=== PATIENT | female | born 1955 | race Asian ===

== ENCOUNTER 2017-04-17 03:43 | Inpatient (IN) | payer MEDICAID ==
[2017-04-17] VITALS (8 sets, daily range): BP systolic 122–164; BP diastolic 60–88; PULSE 64–88; RESP 15–18; TEMP 96.4–98; O2SAT 96–98
[~2017-04-17] VITALS: Ht 152.4 cm; Wt 66.7 kg
[~2017-04-17 03:43] MED LIST: AMLO5TAB4 PO; GLIP5TAB13 PO; GLU500 PO; LOSA25TA3 PO; OMEP40CA33 PO
[2017-04-17] MEDS ORDERED: NITROGLYCERIN 0.4 MG TAB.SUBL SL ONE (04:30)
[2017-04-17 04:41] LABS: BASOPHILS % (AUTO) 0.5 % (0.0-2.0); CALCIUM 9.3 mg/dL (8.4-11.0); CREATININE 0.79 mg/dL (0.55-1.30); EOSINOPHILS # (AUTO) 0.3 K/uL (0.0-0.4); EOSINOPHILS % (AUTO) 2.9 % (0.0-4.0); HEMATOCRIT 43.4 % (36-48); HEMOGLOBIN 14.7 g/dL (12.0-16.0); LYMPHOCYTES # (AUTO) 3.7 K/uL (1.0-5.5); LYMPHOCYTES % (AUTO) 41.8 % (20.5-51.5); MEAN CORPUSCULAR HEMOGLOBIN 29 pg (27-31); MEAN CORPUSCULAR HGB CONC 34 % (32-36); MEAN CORPUSCULAR VOLUME 87 fL (79.0-98.0); MONOCYTES # (AUTO) 0.8 K/uL (0.0-1.0); MONOCYTES % (AUTO) 8.9 % (1.7-9.3); NEUTROPHILS % (AUTO) 45.9 % (40.0-70.0); PLATELET COUNT (AUTO) 361 K/uL (130-430); POTASSIUM 3.4 mmol/L (3.5-5.1); RED BLOOD CELL COUNT(AUTO) 4.99 MIL/uL (4.2-6.2); WHITE BLOOD COUNT (AUTO) 8.8 K/uL (4.8-10.8)
[2017-04-17 04:46] LABS: ALBUMIN 4.3 g/dL (3.4-4.8); TOTAL BILIRUBIN 0.4 mg/dL (0.0-1.0); TOTAL PROTEIN, SERUM 8.1 g/dL (6.4-8.3)
[2017-04-17 04:50] LABS: INR 0.9 (0.8-1.2); PROTHROMBIN TIME 9.5 SECS (9.5-12.5)
[2017-04-17 05:00] LABS: BILIRUBIN,URINE NEGATIVE (NEGATIVE); BLOOD, URINE 2+ (NEGATIVE); CLARITY/URINE HAZY (CLEAR); COLOR,URINE YELLOW (YELLOW); GLUCOSE,URINE 1+ (NEGATIVE); KETONES,URINE TRACE (NEGATIVE); LEUKOCYTE ESTERASE ,URINE 3+ (NEGATIVE); NITRITE, URINE NEGATIVE (NEGATIVE); PROTEIN URINE TRACE (NEGATIVE); UROBILINOGEN,URINE 0.2 (0.2-1.0)
[2017-04-17 05:03] LABS: BACTERIA,URINE FEW /HPF (None Seen); WBC,URINE 80-100 /HPF (0-3)
[2017-04-17 05:04] LABS: MUCUS,URINE None Seen /LPF (None Seen); YEAST,URINE Rare /HPF (None Seen)
[2017-04-17] MEDS ORDERED: FAMO20TA8 PO (05:55)
[2017-04-17] MEDS ORDERED: NITR-85 PO (05:55)
[2017-04-17] MEDS ORDERED: GLYB5TAB7 PO (05:55)
[2017-04-17] MEDS ORDERED: LEVOFLOXACIN 500 MG/D5W 100 ML IV ONE (06:15)
[2017-04-17] MEDS ORDERED: ENOXAPARIN SODIUM 80 MG/0.8 ML SYRINGE SUBCUT ONE (06:15)
[2017-04-17] MEDS ORDERED: METOPROLOL TARTRATE 25 MG TABLET PO ONE ×2 (06:15→11:00)
[2017-04-17] MEDS: INSULIN REGULAR, HUMAN 100 UNITS/ML, 10 ML VIAL (novoLIN R) SUBCUT PRN ×4 (08:04→21:46)
[2017-04-17] MEDS ORDERED: METOPROLOL SUCCINATE 25 MG TAB.SR.24H (TOPROL XL) PO SCH (09:00)
[2017-04-17] MEDS ORDERED: ZOLPIDEM TARTRATE 5 MG TABLET PO PRN (15:00)
[2017-04-17] MEDS ORDERED: amLODIPine BESYLATE 5 MG TABLET PO SCH (21:00)
[2017-04-17] MEDS: glyBURIDE 5 MG TABLET PO SCH (21:39)
[2017-04-17] MEDS: METOPROLOL TARTRATE 25 MG TABLET PO SCH (21:41)
[2017-04-18 07:31] LABS: BASOPHILS # (AUTO) 0.1 K/uL (0.0-0.2); BASOPHILS % (AUTO) 0.9 % (0.0-2.0); EOSINOPHILS # (AUTO) 0.2 K/uL (0.0-0.4); EOSINOPHILS % (AUTO) 2.6 % (0.0-4.0); HEMATOCRIT 43.6 % (36-48); HEMOGLOBIN 14.2 g/dL (12.0-16.0); LYMPHOCYTES # (AUTO) 3.2 K/uL (1.0-5.5); LYMPHOCYTES % (AUTO) 42.2 % (20.5-51.5); MEAN CORPUSCULAR HEMOGLOBIN 28 pg (27-31); MEAN CORPUSCULAR HGB CONC 33 % (32-36); MEAN CORPUSCULAR VOLUME 87 fL (79.0-98.0); MONOCYTES # (AUTO) 0.6 K/uL (0.0-1.0); MONOCYTES % (AUTO) 8.1 % (1.7-9.3); NEUTROPHILS # (AUTO) 3.4 K/uL (1.8-7.7); NEUTROPHILS % (AUTO) 46.2 % (40.0-70.0); PLATELET COUNT (AUTO) 338 K/uL (130-430); RED CELL DISTRIBUTION WIDTH 12.2 % (9.0-15.0); WHITE BLOOD COUNT (AUTO) 7.5 K/uL (4.8-10.8)
[2017-04-18 08:05] LABS: CALCIUM 9.4 mg/dL (8.4-11.0); CREATININE 0.69 mg/dL (0.55-1.30); POTASSIUM 3.5 mmol/L (3.5-5.1); THYROID STIMULATING HORMONE 4.72 uIu/mL (0.34-4.82); TOTAL BILIRUBIN 0.5 mg/dL (0.0-1.0); TOTAL PROTEIN, SERUM 7.6 g/dL (6.4-8.3)
[2017-04-18 08:06] VITALS: BP 153/80; PULSE 63; RESP 17; TEMP 96.8; O2SAT 100
[2017-04-18] MEDS ORDERED: FAMOTIDINE 20 MG TABLET PO SCH (09:00)
[2017-04-18] MEDS ORDERED: amLODIPine BESYLATE 5 MG TABLET PO SCH (09:00)
[2017-04-18] MEDS ORDERED: LOSARTAN POTASSIUM 25 MG TABLET PO SCH (09:00)
[2017-04-18] MEDS: METOPROLOL TARTRATE 25 MG TABLET PO SCH (09:39)
[2017-04-18] MEDS: glyBURIDE 5 MG TABLET PO SCH (09:39)
[2017-04-18] MEDS: INSULIN REGULAR, HUMAN 100 UNITS/ML, 10 ML VIAL (novoLIN R) SUBCUT PRN (11:59)
[2017-04-18 12:29] VITALS: BP 160/80; PULSE 67; RESP 18; TEMP 97.4; O2SAT 97
[2017-04-18] MEDS ORDERED: AMOX500C2 PO (13:28)
[2017-04-18] MEDS ORDERED: LEVO500T20 PO (13:50)
[2017-04-18 14:01] VITALS: BP 142/76; PULSE 71; RESP 17; TEMP 97.2; O2SAT 98
== END 2017-04-18 14:35 | disposition home or self-care (01) | DRG 203 ==
LOC: SED 03:43 → STU 06:12
PROVIDERS: ADMIT Internal Medicine Hospice and Palliative Medicine; ATTEND Internal Medicine Hospice and Palliative Medicine
DX: M94.0 Chondrocostal junction syndrome [Tietze] (principal); E87.1 Hypo-osmolality and hyponatremia; I10 Essential (primary) hypertension; E11.9 Type 2 diabetes mellitus without complications; N39.0 Urinary tract infection, site not specified; Z87.442 Personal history of urinary calculi; Z88.6 Allergy status to analgesic agent; Z88.1 Allergy status to other antibiotic agents; Z88.8 Allergy status to other drugs, medicaments and biological substances; Z82.49 Family history of ischemic heart disease and other diseases of the circulatory system
CPT/HCPCS: 36415; 71010; 80053; 80061; 81000-TC; 82962; 83735-TC; 83880; 84443-TC; 84484; 85025; 85610-TC; 85730-TC; 87086; 93005; 93017; 93306; 96365; 96372; 99285; J1650; J1815; J1956; J7040

== ENCOUNTER 2020-10-19 13:10 | Outpatient (CLI) | payer MEDICAID ==
[~2020-10-19 13:10] MED LIST changes: +FAMO20TA8 PO; -GLIP5TAB13 PO; +GLYB5TAB7 PO; +LEVO500T20 PO; -OMEP40CA33 PO
== END 2020-10-19 21:04 | disposition home or self-care (01) ==
LOC: SUS 13:10
PROVIDERS: ATTEND Family Medicine
DX: K76.0 Fatty (change of) liver, not elsewhere classified (principal); N28.1 Cyst of kidney, acquired; N20.0 Calculus of kidney
CPT/HCPCS: 76700-TC

== ENCOUNTER 2021-07-26 15:55 | Outpatient (CLI) | payer OTHER, MEDICAID | END 2021-07-26 19:24 | disposition home or self-care (01) | LOC: SRD 15:55 | PROVIDERS: ATTEND Family Medicine | DX: Z01.811 Encounter for preprocedural respiratory examination (principal); S99.912A Unspecified injury of left ankle, initial encounter; X58.XXXA Exposure to other specified factors, initial encounter; Y93.9 Activity, unspecified; Y92.9 Unspecified place or not applicable; Y99.9 Unspecified external cause status | CPT/HCPCS: 71046-TC ==